=== PATIENT | female | born 1955 | race African-American/Black ===

== ENCOUNTER 2023-02-27 23:00 | Observation (INO) | payer MEDICARE ==
[2023-02-28 01:17] VITALS: BMI 28.6
[2023-02-28 03:16] LABS: Troponin I 0.017 ng/mL (< 0.028)
[2023-02-28] MEDS ORDERED: Nitroglycerin 0.4 MG TAB (25 Tab Bottle) SL PRN (05:55)
[2023-02-28] MEDS: Nitroglycerin 2% Ointment 1 INCH/1 GM Packet TOP SCH ×2 (06:47→14:12)
[2023-02-28 06:55] LABS: #Eosinphils 0.1 10x3/uL (0.0-0.5); #Monocytes 0.5 10x3/uL (0.0-1.1); #Neutrophils 6.2 10x3/uL (1.5-8.4); %Basophils 0.3 % (0.0-2.0); %Eosinophils 1.5 % (0.0-6.0); %Monocytes 5.4 % (0.0-10.0); %Neutrophils 69.3 % (40.0-75.0); Hematocrit 33.2 % (34.9-44.5); Hemoglobin 11.1 g/dL (12.0-15.5); Mean Corpuscular HGB CONC 33.4 g/dL (32.0-36.0); Mean Corpuscular Hemoglobin 28.5 pg (27.0-33.0); Mean Corpuscular Volume 85.1 fl (81.6-98.3); Mean Platelet Volume 10.5 fl (7.4-10.4); Platelet Count 265 10x3/uL (150-450); RBC Distribution Width 14.5 % (11.5-14.5); White Blood Cell (WBC) Count 8.9 10x3/uL (3.5-10.5)
[2023-02-28 06:59] LABS: Anion Gap 16 mmol/L (10-20); BUN (Urea Nitrogen) 24 mg/dL (9.8-20.1); Calc. Creatinine Clearance 73 mL/min (70-130); Calcium 9.1 mg/dL (7.8-10.44); Carbon Dioxide 20 mmol/L (23-31); Cardiac Risk 3.2 (Less than 4.5); Chloride 113 mmol/L (98-107); Cholesterol 155 mg/dl (< 200 Desired); Estimated GFR 66; Glucose 117 mg/dL (80-115); HDL Cholesterol 49 mg/dL (>60 Neg Risk); LDL Cholesterol, Calculated 88 mg/dL; Magnesium 1.6 mg/dL (1.6-2.6); Sodium 145 mmol/L (136-145); Triglycerides 90 mg/dL (Less than 150)
[2023-02-28] MEDS ORDERED: Gabapentin 300 MG CAP PO SCH (09:00)
[2023-02-28] MEDS ORDERED: Aspirin Chewable 81 MG TAB PO SCH (09:00)
[2023-02-28] MEDS ORDERED: Empagliflozin 25 MG TAB PO SCH (09:00)
[2023-02-28] MEDS ORDERED: Fluticasone Propionate Nasal Spray 16 gm Bottle NASAL SCH (09:00)
[2023-02-28] MEDS ORDERED: Potassium Chloride 20 MEQ TAB PO SCH (09:00)
[2023-02-28] MEDS ORDERED: Magnesium 2 GM/50 ML(in water) 2 GM in Premix Bag 1 BAG IVPB SCH (09:00)
[2023-02-28] MEDS ORDERED: Lisinopril 10 MG TAB PO SCH (09:00)
[2023-02-28] MEDS: metFORMIN 500 MG TAB PO SCH ×2 (09:56→18:03)
[2023-02-28] MEDS ORDERED: Acetaminophen 325 MG TAB PO PRN (10:20)
[2023-02-28 17:02] VITALS: BP 165/81; TEMP 98.7
[2023-02-28] MEDS ORDERED: Atorvastatin Calcium 10 MG TAB PO SCH (21:00)
== END 2023-02-28 18:20 | disposition home or self-care (01) ==
LOC: CSHTELE 02-28 00:09
PROVIDERS: ADMIT Family Medicine; ATTEND Hospitalist
DX: R07.89 Other chest pain (principal); I10 Essential (primary) hypertension; E78.5 Hyperlipidemia, unspecified; E11.9 Type 2 diabetes mellitus without complications; I25.10 Atherosclerotic heart disease of native coronary artery without angina pectoris; I16.0 Hypertensive urgency; E66.9 Obesity, unspecified; Z68.28 Body mass index [BMI] 28.0-28.9, adult; Z87.891 Personal history of nicotine dependence; Z79.82 Long term (current) use of aspirin; Z79.84 Long term (current) use of oral hypoglycemic drugs; Z79.899 Other long term (current) drug therapy; Z90.49 Acquired absence of other specified parts of digestive tract; Z90.710 Acquired absence of both cervix and uterus
CPT/HCPCS: 36415; 36416; 80048; 80061; 83735; 84484; 85025; 93005; 93010; 93306; 96372; 96374; G0378; J1650; J3475

== ENCOUNTER 2023-08-27 16:05 | Inpatient (IN) | payer MEDICARE ==
[2023-08-27 16:22] VITALS: BMI 24.4
[2023-08-27] MEDS ORDERED: Ondansetron PF 4 MG/2 ML Vial IVP PRN (17:36)
[2023-08-27] MEDS ORDERED: Ondansetron ODT 4 MG TAB PO PRN (17:36)
[2023-08-27] MEDS ORDERED: Acetaminophen 650 MG Suppository PR PRN (17:36)
[2023-08-27] MEDS ORDERED: Dextrose 50% Abboject 50 ML SYRINGE SLOW IVP PRN (17:47)
[2023-08-27] MEDS ORDERED: Dextrose 5% in Water 1,000 ML IV PRN (17:47)
[2023-08-27] MEDS ORDERED: Glucagon 1 MG/ML KIT IM PRN (17:47)
[2023-08-27] MEDS: Amlodipine 5 MG TAB PO SCH (18:53)
[2023-08-27 19:02] LABS: Troponin I 0.023 ng/mL (< 0.028)
[2023-08-27] MEDS: Acetaminophen 325 MG TAB PO PRN (20:10)
[2023-08-27] MEDS: Atorvastatin Calcium 10 MG TAB PO SCH (20:10)
[2023-08-27] MEDS ORDERED: Nitroglycerin 0.4 MG TAB (25 Tab Bottle) SL PRN (20:41)
[2023-08-27] MEDS: Insulin Regular 300 UNITS/3 ML VIAL SC PRN (21:38)
[2023-08-27 22:09] LABS: Troponin I 0.035 ng/mL (< 0.028)
[2023-08-28 05:07] LABS: #Eosinphils 0.1 10x3/uL (0.0-0.5); #Monocytes 0.5 10x3/uL (0.0-1.1); #Neutrophils 7.1 10x3/uL (1.5-8.4); %Basophils 0.3 % (0.0-2.0); %Eosinophils 0.9 % (0.0-6.0); %Lymphocytes 17.1 % (18.0-47.0); %Neutrophils 76.5 % (40.0-75.0); Hematocrit 36.5 % (34.9-44.5); Hemoglobin 12.2 g/dL (12.0-15.5); Mean Corpuscular HGB CONC 33.4 g/dL (32.0-36.0); Mean Corpuscular Hemoglobin 28.8 pg (27.0-33.0); Mean Corpuscular Volume 86.3 fl (81.6-98.3); Mean Platelet Volume 10.7 fl (7.4-10.4); Platelet Count 272 10x3/uL (150-450); RBC Distribution Width 13.8 % (11.5-14.5); Red Blood Cell (RBC) Count 4.23 10x6/uL (3.90-5.03); White Blood Cell (WBC) Count 9.3 10x3/uL (3.5-10.5)
[2023-08-28 06:54] LABS: Anion Gap 13 mmol/L (10-20); BUN (Urea Nitrogen) 25 mg/dL (9.8-20.1); Calc. Creatinine Clearance 54 mL/min (70-130); Calcium 8.9 mg/dL (7.8-10.44); Carbon Dioxide 21 mmol/L (23-31); Cardiac Risk 2.7 (Less than 4.5); Chloride 110 mmol/L (98-107); Cholesterol 155 mg/dl (< 200 Desired); Estimated GFR 54; Glucose 131 mg/dL (80-115); HDL Cholesterol 57 mg/dL (>60 Neg Risk); LDL Cholesterol, Calculated 85 mg/dL; Potassium 4.2 mmol/L (3.5-5.1); Sodium 140 mmol/L (136-145); Triglycerides 65 mg/dL (Less than 150)
[2023-08-28] MEDS: Methimazole 5 MG TAB PO SCH (10:49)
[2023-08-28] MEDS: Lisinopril 20 MG TAB PO SCH (10:50)
[2023-08-28] MEDS: Aspirin Chewable 81 MG TAB PO SCH (10:51)
[2023-08-28] MEDS: glipiZIDE XL 5 mg ER.TAB PO SCH (10:52)
[2023-08-28] MEDS: Amlodipine 5 MG TAB PO SCH (10:53)
[2023-08-28] MEDS: Empagliflozin 25 MG TAB PO SCH (11:00)
[2023-08-28] MEDS ORDERED: hydrALAZINE 20 MG/ML VIAL SLOW IVP PRN (15:29)
[2023-08-28] MEDS: Carvedilol 6.25 MG TAB PO SCH (17:14)
[2023-08-28] MEDS: Gabapentin 300 MG CAP PO SCH (21:25)
[2023-08-29 05:14] LABS: #Eosinphils 0.1 10x3/uL (0.0-0.5); #Monocytes 0.4 10x3/uL (0.0-1.1); #Neutrophils 6.3 10x3/uL (1.5-8.4); %Basophils 0.5 % (0.0-2.0); %Eosinophils 0.7 % (0.0-6.0); %Lymphocytes 18.8 % (18.0-47.0); %Monocytes 4.9 % (0.0-10.0); %Neutrophils 74.7 % (40.0-75.0); Hematocrit 35.9 % (34.9-44.5); Hemoglobin 12.2 g/dL (12.0-15.5); Mean Corpuscular Hemoglobin 29.2 pg (27.0-33.0); Mean Corpuscular Volume 85.9 fl (81.6-98.3); Mean Platelet Volume 10.9 fl (7.4-10.4); Platelet Count 255 10x3/uL (150-450); RBC Distribution Width 13.6 % (11.5-14.5); Red Blood Cell (RBC) Count 4.18 10x6/uL (3.90-5.03); White Blood Cell (WBC) Count 8.5 10x3/uL (3.5-10.5)
[2023-08-29 05:31] LABS: Anion Gap 13 mmol/L (10-20); BUN (Urea Nitrogen) 23 mg/dL (9.8-20.1); Calc. Creatinine Clearance 55 mL/min (70-130); Calcium 8.8 mg/dL (7.8-10.44); Carbon Dioxide 21 mmol/L (23-31); Chloride 112 mmol/L (98-107); Estimated GFR 56; Glucose 153 mg/dL (80-115); Potassium 3.9 mmol/L (3.5-5.1); Sodium 142 mmol/L (136-145)
[2023-08-29] MEDS: Amlodipine 10 MG TAB PO SCH (09:04)
[2023-08-29 13:12] VITALS: BP 156/73; TEMP 98.1
[2023-08-29] MEDS ORDERED: Methimazole 5 MG TAB PO SCH (21:00)
== END 2023-08-29 14:00 | disposition home or self-care (01) | DRG 313 ==
LOC: INTOOBSV 16:05 → CSHTELE 16:05 → OBSVTOIN 08-29 13:13
PROVIDERS: ADMIT Emergency Medicine; ATTEND Internal Medicine
DX: R07.89 Other chest pain (principal); I50.22 Chronic systolic (congestive) heart failure; I11.0 Hypertensive heart disease with heart failure; E11.9 Type 2 diabetes mellitus without complications; E05.90 Thyrotoxicosis, unspecified without thyrotoxic crisis or storm; Z96.652 Presence of left artificial knee joint; F41.9 Anxiety disorder, unspecified; E78.5 Hyperlipidemia, unspecified; K44.9 Diaphragmatic hernia without obstruction or gangrene; C50.919 Malignant neoplasm of unspecified site of unspecified female breast; Z90.710 Acquired absence of both cervix and uterus; Z90.49 Acquired absence of other specified parts of digestive tract; Z82.49 Family history of ischemic heart disease and other diseases of the circulatory system; Z79.899 Other long term (current) drug therapy; Z79.84 Long term (current) use of oral hypoglycemic drugs; Z79.82 Long term (current) use of aspirin; Z90.12 Acquired absence of left breast and nipple; Z98.890 Other specified postprocedural states; Z87.891 Personal history of nicotine dependence
CPT/HCPCS: 36415; 36416; 80048; 80061; 85025; 93306; G0378; J1815